=== PATIENT | male | born 1945 | race Caucasian/White ===

== ENCOUNTER 2016-12-24 20:45 | Emergency (ER) | payer BC, MEDICARE, OTHER ==
[~2016-12-24] VITALS: Ht 167.6 cm; Wt 83.9 kg
[~2016-12-24 20:45] MED LIST: ASPIRIN81 MG ORAL; GLUCOPHAGE500 MG ORAL; LIPITOR40 MG ORAL; PLAVIX75 MG ORAL
[2016-12-24] MEDS ORDERED: PROMETHAZINE-C118 M1 ORAL (21:22)
--- NOTE | 2016-12-24 21:23 | Emergency Room Report ---
History of Present Illness General Chief Complaint: Upper Respiratory Illness Source: Patient Present Illness HPI Is a 71-year-old male with no significant past medical history. He presents with chief complaint of congestion runny nose. His been ongoing for about 7 days. Slight cough. He felt some tingling in his throat and worried that he may have pneumonia. No fever or chills. No nausea no vomiting. He's not a smoker. No other complaint. Allergies: Coded Allergies: No Known Allergies (Unverified , 09/03/13) Patient History Past Medical History: see triage record, old chart reviewed Past Surgical History: other Pertinent Family History: none Social History: Denies: smoking Immunizations: other Reviewed Nursing Documentation: PMH: Agreed, PSxH: Agreed Nursing Documentation-PMH Hx Cardiac Problems: Yes - 2 STENT PLACEMENT Hx Diabetes: Yes Hx Cancer: No Hx Gastrointestinal Problems: No Hx Neurological Problems: No Review of Systems Eye: Denies: blurred vision, eye pain ENT: Reports: nose congestion, Denies: ear pain, throat swelling Respiratory: Reports: cough, Denies: shortness of breath Cardiovascular: Denies: chest pain, palpitations Gastrointestinal: Denies: abdominal pain, diarrhea, nausea, vomiting Musculoskeletal: Denies: back pain, joint pain Skin: Denies: rash Neurological: Denies: headache, numbness Endocrine: Denies: increased thirst, increased urine Hematologic/Lymphatic: Denies: easy bruising All Other Systems: negative except mentioned in HPI Physical Exam Vital Signs Date Time Temp Pulse Resp B/P Pulse Ox O2 Delivery O2 Flow Rate FiO2 12/24/16 20:57 98.1 80 18 142/77 94 Room Air vitals normal Sp02 EP Interpretation: reviewed, normal General Appearance: well appearing, no apparent distress, alert Head: normocephalic, atraumatic Eyes: bilateral eye EOMI, bilateral eye PERRL ENT: hearing grossly normal, normal pharynx, uvula midline - Mildly enlarged Neck: full range of motion, supple, no meningismus Respiratory: chest non-tender, lungs clear, normal breath sounds Cardiovascular #1: regular rate, rhythm, no murmur Gastrointestinal: normal bowel sounds, non tender, no mass, no organomegaly, no bruit, non-distended Musculoskeletal: back normal, gait/station normal, normal range of motion Psychiatric: mood/affect normal Skin: warm/dry Medical Decision Making Diagnostic Impression: Primary Impression: Viral upper respiratory infection ER Course Patient presents with a viral illness. No evidence of acute bacterial infection. No evidence of pneumonia, sepsis, ACS, CHF to name a few. We'll discharge home. Last Vital Signs Date Time Temp Pulse Resp B/P Pulse Ox O2 Delivery O2 Flow Rate FiO2 12/24/16 21:09 80 18 Room Air 12/24/16 20:57 98.1 142/77 94 Status: improved Disposition: HOME, SELF-CARE Condition: Stable Scripts Codeine/Promethazine Hcl* (PROMETHAZINE-CODEINE SYRUP*) 118 Ml Syrup 5 ML ORAL Q6H Y for For Cough, #120 ML 0 Refills Prov: WAN CRESPO M.D. 12/24/16 Patient Instructions: Upper Respiratory Infection, Adult Additional Instructions: You have a viral illness. Antibiotics does not treat this. Followup your Dr. in 7 days. Return if symptom worsen. WAN CRESPO M.D. December 24, 2016 21:23
[2016-12-24 21:29] VITALS: BP 142/77
== END 2016-12-24 21:33 | disposition home or self-care (01) ==
LOC: EMR 21:23
DX: J06.9 Acute upper respiratory infection, unspecified (principal); R05 Cough; R09.81 Nasal congestion; Z98.61 Coronary angioplasty status; E11.9 Type 2 diabetes mellitus without complications
CPT/HCPCS: 99283

== ENCOUNTER 2017-01-16 19:22 | Emergency (ER) | payer MEDICARE ==
[~2017-01-16] VITALS: Ht 172.7 cm; Wt 70.3 kg
[~2017-01-16 19:22] MED LIST changes: +PROMETHAZINE-C118 M1 ORAL
[2017-01-16] MEDS ORDERED: Tylenol #3 tab (300mg/30mg) ORAL ONE (19:45)
[2017-01-16 20:01] VITALS: BP 146/75
[2017-01-16] MEDS ORDERED: ACETAMINOPHEN-1 EAC1 ORAL (20:22)
[2017-01-16 20:29] VITALS: BP 146/75
--- NOTE | 2017-01-16 21:51 | Emergency Room Report ---
History of Present Illness General Chief Complaint: Upper Extremity Injury Source: Patient (ILIANA FARRELL) Present Illness HPI The patient is a 71-year-old male presenting for left shoulder pain. The patient states that he was walking, tripped, fell forward onto the left shoulder. Pain is described as a 6/10 dull ache and does not radiate. Pain worse with shoulder movement. He denies previous injury to this area. He denies hitting his head or loss of consciousness. He denies any numbness or tingling. He denies any other symptoms. (ILIANA FARRELL) Allergies: Coded Allergies: No Known Allergies (Unverified , 09/03/13) Patient History Past Medical History: see triage record Pertinent Family History: none Reviewed Nursing Documentation: PMH: Agreed, PSxH: Agreed (ILIANA FARRELL) Nursing Documentation-PMH Hx Cardiac Problems: Yes Hx Diabetes: Yes Hx Cancer: No Hx Gastrointestinal Problems: No Hx Neurological Problems: No (ILIANA FARRELL) Review of Systems All Other Systems: negative except mentioned in HPI (ILIANA FARRELL) Physical Exam Vital Signs Date Time Temp Pulse Resp B/P Pulse Ox O2 Delivery O2 Flow Rate FiO2 01/16/17 19:35 98.1 78 16 146/75 98 Room Air Sp02 EP Interpretation: reviewed, normal General Appearance: no apparent distress, alert, GCS 15, non-toxic Head: normocephalic, atraumatic Eyes: bilateral eye PERRL, bilateral eye normal inspection ENT: hearing grossly normal, normal pharynx, no angioedema, normal voice Musculoskeletal: normal inspection, normal range of motion, tender - TTP over the L lateral deltoid Neurologic: alert, oriented x3, responsive, motor strength/tone normal, sensory intact, speech normal Psychiatric: judgement/insight normal, memory normal, mood/affect normal, no suicidal/homicidal ideation Skin: normal color, no rash, warm/dry, well hydrated Lymphatic: no adenopathy (ILIANA FARRELL) Procedures Splinting Splinting : Consent: Verbal Location: L shoulder Pre-Made Type: sling Pre-Proc Neuro Vasc Exam: normal Post-Proc Neuro Vasc Exam: normal Patient Tolerated: Well Complications: None (ILIANA FARRELL) Medical Decision Making PA Attestation Dr. Stauffer is my supervising physician. Patient management was discussed with my supervising physician (ILIANA FARRELL) Diagnostic Impression: Primary Impression: Sprain of shoulder, left Qualified Codes: S43.402A - Unspecified sprain of left shoulder joint, initial encounter ER Course The patient is a 71-year-old male presenting for left shoulder pain. Ddx considered include but not limited to sprain/strain, fracture, contusion, dislocation, RTC injury, among others. PE: vitals WNL. NAD No obvious deformity. No tenderness to palpation over the left clavicle. Pacers to palpation over the left lateral deltoid only. Full active range of motion. No edema. No ecchymosis. Xray unremarkable. L arm placed in sling. ER precautions given and the pt will FU with PM. He is advised he may need MRI if pain continues or worsens. (ILIANA FARRELL) ER Course Scribe documentation reviewed by me and is accurate. (Bo Stauffer M.D.) Other X-Ray Diagnostic Results Other X-Ray Diagnostic Results : X-Ray Ordered: L shoulder Date: January 16, 2017 EP Interpretation: Yes Findings: no fractures, no dislocation, no soft tissue swelling Number of Views: 3 PA Scribe Text I am acting as scribe for my supervising physician. My supervising physician's interpretation of the L shoulder xrays are there are no fractures, dislocations or soft tissue swelling. (ILIANA FARRELL) Last Vital Signs Date Time Temp Pulse Resp B/P Pulse Ox O2 Delivery O2 Flow Rate FiO2 01/16/17 20:29 98.1 84 16 146/75 98 Room Air Status: improved (ILIANA FARRELLAYohan) Disposition: HOME, SELF-CARE Condition: Improved Scripts Acetaminophen With Codeine (T#3) (TYLENOL #3 TAB*) Y Tab 1 TAB ORAL Q6HR Y for For Pain, #10 TAB Prov: ILIANA FARRELL 01/16/17 Referrals: [facility] NOT CHOSEN [facility]/,REFERRING (PCP) Patient Instructions: Shoulder Pain Additional Instructions: I discussed my findings with the patient. All questions and concerns have been answered. Treatment and medication compliance have been addressed. I advised the patient that they need to follow up with PMD in 3-5 days. Return to ED if pain remains or worsens, numbness or tingling occurs, new rash is noticed, fever is noticed, or if needed for any reason. Patient verbalized understanding of discharge instructions. The patient was informed he may need MRI if pain continues or worsens ILIANA FARRELL January 16, 2017 21:51 Bo Stauffer M.D. January 18, 2017 02:07
--- NOTE | 2017-01-17 12:48 | Diagnostic Imaging Report ---
Indication: PAIN Technique: 3 views of the shoulder Comparison: none Findings: No acute fractures. No dislocations. Joint spaces are preserved. Impression:Negative
== END 2017-01-16 20:30 | disposition home or self-care (01) ==
LOC: EMR 19:56
DX: S43.402A Unspecified sprain of left shoulder joint, initial encounter (principal); W01.0XXA Fall on same level from slipping, tripping and stumbling without subsequent striking against object, initial encounter; Y93.9 Activity, unspecified; Y99.9 Unspecified external cause status; Z86.79 Personal history of other diseases of the circulatory system; M25.512 Pain in left shoulder; E11.9 Type 2 diabetes mellitus without complications
CPT/HCPCS: 29240; 99283

== ENCOUNTER 2019-10-23 09:10 | Emergency (ER) | payer MEDICARE, BC ==
[~2019-10-23] VITALS: Ht 185.4 cm; Wt 79.4 kg
[~2019-10-23 09:10] MED LIST changes: +ACETAMINOPHEN-1 EAC1 ORAL
[2019-10-23 09:20] VITALS: BP 134/77
--- NOTE | 2019-10-23 09:20 | NUR ---
ED Nurse Note: Patient walked into ED from home c/o 5/10 right hand pain after fall on Friday. Patient AxO x 4, denies LOC. No s/s of acute distress.
--- NOTE | 2019-10-23 09:40 | Emergency Room Report ---
History of Present Illness General Chief Complaint: Pain Source: Patient, Family Member Present Illness HPI Patient fell several days ago. He tried putting a splint on it. He is not taking any medication for the pain. There is been swelling without any numbness. When he tried to apply the splint today there was increased pain. Is able to move the wrist and the hand and the thumb. He fell onto his chest. The right side of his chest was tender but is doing better at this time. He slipped and fell forward with his hand underneath his right chest. There was no loss of consciousness. No dyspnea or cough. Pain is rated 5/10 and increased with pressure on the area. It is aching and radiating minimally into the distal wrist. Patient is diabetic. He states his blood sugars have run around 140s. He does not take insulin. Allergies: Coded Allergies: No Known Allergies (Unverified , 09/03/13) Patient History Past Medical History: see triage record, DM Social History: Denies: smoking, alcohol use, drug use Social History Narrative From home Reviewed Nursing Documentation: PMH: Agreed; PSxH: Agreed Nursing Documentation-PMH Hx Cardiac Problems: Yes - Stent Hx Diabetes: Yes Hx Cancer: No Hx Gastrointestinal Problems: No Hx Neurological Problems: No Review of Systems Respiratory: Reports: see HPI Cardiovascular: Reports: see HPI Gastrointestinal: Denies: abdominal pain Musculoskeletal: Reports: see HPI Skin: Reports: see HPI Neurological: Reports: see HPI Hematologic/Lymphatic: Reports: see HPI Physical Exam Vital Signs Date Time Temp Pulse Resp B/P (MAP) Pulse Ox O2 Delivery O2 Flow Rate FiO2 10/23/19 09:16 98.1 71 18 134/77 (96) 93 Room Air Sp02 EP Interpretation: reviewed, normal General Appearance: well appearing, no apparent distress, GCS 15 Head: normocephalic, atraumatic Eyes: bilateral eye normal inspection, bilateral eye PERRL, bilateral eye EOMI ENT: moist mucus membranes Respiratory: lungs clear, normal breath sounds, other - Chest wall tenderness on the right-hand side Cardiovascular #1: regular rate, rhythm Gastrointestinal: normal inspection Musculoskeletal: gait/station normal, tenderness - Base of right thumb with hematoma range of motion most normal., other - Knee is not tender Neurologic: alert, distal neuro normal Psychiatric: mood/affect normal Skin: normal color, hematoma - Base of right thumb Medical Decision Making Diagnostic Impression: Primary Impression: Hand contusion Qualified Codes: S60.221A - Contusion of right hand, initial encounter Additional Impression: Chest wall contusion Qualified Codes: S20.211A - Contusion of right front wall of thorax, initial encounter ER Course Patient fell and hit his chest with his hand underneath him and presents with right thumb pain. The chest pain is better at this time. Differential includes fracture, contusion and hematoma. X-rays are indicated of the hand. Ibuprofen and Tylenol administered. X-ray without fracture but with DJD. Davidson applied by me with good tension and position with some improvement. Distal neurovascular checked by me and normal. Sling applied by technical training instructor. Pain improved in emergency department. Discussed findings with patient. Discussed expected treatment course. Discussed treatment plan with need for outpatient follow-up. Patient stable for outpatient observation and treatment. Other X-Ray Diagnostic Results Other X-Ray Diagnostic Results : # of Views/Limited Vs Complete: 3 View Indication: Other EP Interpretation: Yes Interpretation: no dislocation, no soft tissue swelling, no fractures, other - DJD Impression: Other Electronically Signed by: Electronically signed by Bo Stauffer MD Last Vital Signs Date Time Temp Pulse Resp B/P (MAP) Pulse Ox O2 Delivery O2 Flow Rate FiO2 10/23/19 10:28 98.0 84 19 134/77 94 Room Air Status: improved Disposition: HOME, SELF-CARE Condition: Improved Scripts Acetaminophen (Tylenol) 325 Mg Tablet 650 MG ORAL Q6H PRN for Prn Pain/Headache/Temp > 101, #20 TAB 0 Refills Prov: Bo Stauffer MD 10/23/19 Ibuprofen* (MOTRIN*) 600 Mg Tablet 600 MG ORAL THREE TIMES A DAY, #16 TAB 0 Refills Prov: Bo Stauffer MD 10/23/19 Bo Stauffer MD Oct 23, 2019 09:40
[2019-10-23] MEDS ORDERED: Acetaminophen 500mg (ES) tab PO ONE (09:45)
--- NOTE | 2019-10-23 10:13 | Diagnostic Imaging Report ---
EXAM: XR Right Hand Complete, 3 or More Views CLINICAL HISTORY: PAIN TECHNIQUE: Frontal, lateral and oblique views of the right hand. COMPARISON: None FINDINGS: Bones/joints: No displaced fracture or dislocation identified. Osteopenia. Degenerative changes of the right first MCP joint and right first CMC joint. Degenerative changes of the interphalangeal joints. Soft tissues: Normal. IMPRESSION: No displaced fracture or dislocation identified.
[2019-10-23] MEDS ORDERED: TYLENOL325 MG ORAL (10:17)
[2019-10-23] MEDS ORDERED: IBUPROFEN600 MG ORAL (10:17)
[2019-10-23 10:28] VITALS: BP 134/77
--- NOTE | 2019-10-23 10:28 | NUR ---
ER DISCHARGE NOTE: Patient cleared for DC by Dr. Stauffer, patient AxO x 4, no s/s of acute distress. Patient verbalized understanding of DC instructions. Patient ID band removed. Able to ambulate with steady gait, took all belongings.
== END 2019-10-23 10:28 | disposition home or self-care (01) ==
LOC: EMR 09:50
DX: S60.221A Contusion of right hand, initial encounter (principal); S20.221A Contusion of right back wall of thorax, initial encounter; E11.9 Type 2 diabetes mellitus without complications; Z95.828 Presence of other vascular implants and grafts; W01.0XXA Fall on same level from slipping, tripping and stumbling without subsequent striking against object, initial encounter; Y93.9 Activity, unspecified; Y92.9 Unspecified place or not applicable
CPT/HCPCS: 99283